=== PATIENT | male | born 1945 | race Asian ===

== ENCOUNTER 2017-05-22 19:41 | Emergency (ER) | payer OTHER ==
--- NOTE | 2017-05-22 20:04 | PDOC ---
Rapid Medical Evaluation Time Seen by Provider: 05/22/17 19:58 Medical Evaluation: 05/22/17 19:58 I have performed a brief in-person evaluation of this patient. The patient presents with a chief complaint of: legs cold, "buzzing" in head, SOB x "a few hours", denies chest pain, hx HTN, ran out of medications ( immigrated from [place] 1 month ago) Pertinent physical exam findings: VSS I have ordered the following: CXR, EKG The patient will proceed to the ED for further evaluation. Discharge Disposition - Diagnosis Shortness of breath - Referrals - Patient Instructions - Post Discharge Activity
[2017-05-22 20:06] VITALS: TEMP 98.3; BMI 40.6
[2017-05-22 20:28] VITALS: PULSE 83
--- NOTE | 2017-05-22 20:41 | PDOC ---
Attending Attestation - Resident Resident Name: Aruna Sanders <Rubén David - Last Filed: 05/22/17 20:41> - ED Attending Attestation I have performed the following: I have examined & evaluated the patient, The case was reviewed & discussed with the resident, I agree w/resident's findings & plan - HPI HPI: 05/22/17 20:46 The patient is a 71 year old male, with a significant past medical history of hypertension, who presents to the emergency department with shortness of breath since earlier today. Patient reports he has been feeling short of breath today secondary to running out of his hypertension medications. He denies any associated chest pain, diaphoresis, palpitations, or lower extremity edema. He denies any headache, dizziness, or changes in vision. Patient reports he is on a regimen of Hydrochlorothiazide, Co Diovan, and Bisoprolol BID. Patient last took 2 Co Diovan prior to coming in. Patient reports he is visiting his son from [place]. Allergies: NKDA Past Surgical History: None reported Social History: Non smoker. No ETOH or recreational drug use. - Physicial Exam PE: 05/22/17 20:46 GENERAL: Well-appearing, well-nourished. No apparent distress. HEENT: Normocephalic, atraumatic. PERRL, EOM intact. CARDIOVASCULAR: Normal S1, S2. Regular rate and rhythm. PULMONARY: Clear to auscultation bilaterally. ABDOMEN: Soft, non-distended, non-tender. EXTREMITIES: Normal ROM in all four extremities. No gross deformities. SKIN: Warm, dry. No rash NEUROLOGICAL: No focal neurological deficits. - Medical Decision Making 05/22/17 20:47 Documentation prepared by Alessandra Solorzano, acting as medical reception for Rubén David DO. <Alessandra Solorzano - Last Filed: 05/22/17 20:47>
--- NOTE | 2017-05-22 20:58 | PDOC ---
History of Present Illness - General Chief Complaint: Blood Pressure Problem Stated Complaint: BLOOD PRESSURE Time Seen by Provider: 05/22/17 19:58 - History of Present Illness Initial Comments: 05/22/17 20:56 71yo man visiting from [place] with PMH of HTN who presents with c/o high blood pressure and sob. Patient ran out of his regular home medication and requesting refill. He is on bisprolol 5mg BID, Valsartan-HCTZ qd, and Valsartan 160mg HS. He denies any chest pain, chest pressure, or palpitations. No LE edema or pain with ambulation. No fever, chills, PANDA. No known drug allergies. No prior surgeries. Past History - Past Medical History Allergies/Adverse Reactions: Allergies Allergy/AdvReac Type Severity Reaction Status Date / Time No Known Allergies Allergy Verified 05/22/17 20:31 Home Medications: Ambulatory Orders Valsartan 160 mg PO HS #30 tablet 05/22/17 Valsartan/Hydrochlorothiazide [Valsartan-Hctz 160-25 mg Tab] 1 each PO DAILY # 30 tablet 05/22/17 COPD: No HTN: Yes - Suicide/Smoking/Psychosocial Hx Smoking History: Current every day smoker Have you smoked in the past 12 months: Yes Number of Cigarettes Smoked Daily: 20 Information on smoking cessation initiated: No Hx Alcohol Use: No Drug/Substance Use Hx: No Substance Use Type: None Review of Systems - Review of Systems Respiratory: Yes: See HPI Cardiac (ROS): Yes: See HPI All Other Systems: Reviewed and Negative *Physical Exam - Vital Signs Last Vital Signs Temp Pulse Resp BP Pulse Ox 98.3 F 83 19 130/66 100 05/22/17 20:00 05/22/17 20:27 05/22/17 20:27 05/22/17 20:27 05/22/17 20:29 - Physical Exam General Appearance: Yes: Appropriately Dressed. No: Apparent Distress HEENT: positive: Normal ENT Inspection Neck: positive: Supple Respiratory/Chest: positive: Lungs Clear, Normal Breath Sounds Cardiovascular: positive: Regular Rhythm, Regular Rate, S1, S2. negative: JVD Vascular Pulses: Dorsalis-Pedis (R): 2+, Doralis-Pedis (L): 2+ Gastrointestinal/Abdominal: positive: Soft, Protuberent. negative: Tender, Distended, Guarding Extremity: positive: Normal Inspection. negative: Pedal Edema, Calf Tenderness Integumentary: positive: Normal Color Neurologic: positive: Fully Oriented, Alert, Normal Mood/Affect Medical Decision Making - Medical Decision Making 05/23/17 01:00 71yo [place] man with PMH of HTN who is requesting medication refill. Patient took last dose of Valsartan-HCTZ at 7pm. His initial BP was 150/77, but decreased to 127/74 by 9:15pm. Patient is well appearing, vital signs stable, satting well at RA, lung exam is CTAB with no LE edema. Will discharge the patient home with Rx for Bisoprolol 5mg BID, Valsartan 160mg QD, and Valsartan- HCTZ 160-25mg HS. Patient is planning to have hip surgery in a few months, and was instructed to follow-up with his physician. Patient is in agreement with plan. *DC/Admit/Observation/Transfer Diagnosis at time of Disposition: Shortness of breath - Prescriptions Prescriptions: Valsartan 160 mg PO HS #30 tablet Valsartan/Hydrochlorothiazide [Valsartan-Hctz 160-25 mg Tab] 1 each PO DAILY # 30 tablet - Referrals - Patient Instructions Printed Discharge Instructions: DI for High Blood Pressure, How to Monitor Your Blood Pressure at Home Additional Instructions: You have high blood pressure. Please make an appointment with your primary care physician within the next 1-2 weeks. Please take 1 tablet of Co-Diovan daily in the morning, 1 tablet of Diovan daily in the evening, and 1 tablet of Bisoprolol twice per day. Please return to the Emergency Department if you have worsening, new or concerning symptoms. - Post Discharge Activity
[2017-05-22 21:15] VITALS: BP 127/74
== END 2017-05-22 21:15 | disposition home or self-care (01) ==
LOC: JER 19:41
DX: I10 Essential (primary) hypertension (principal)
CPT/HCPCS: 99282-25